=== PATIENT | female | born 1945 | race Caucasian/White ===

== ENCOUNTER 2018-11-28 09:49 | Inpatient (IN) | payer OTHER ==
[~2018-11-28] VITALS: Ht 170.2 cm; Wt 90.3 kg
[2018-11-28 10:14] LABS: BASOPHILS % (AUTO) 0.3 % (0.0-5.0); EOSINOPHILS % (AUTO) 0.5 % (0.0-8.0); HEMATOCRIT 28.9 % (36-48); LYMPHOCYTES % (AUTO) 9.2 % (21.0-51.0); MEAN CORPUSCULAR HEMOGLOBIN 35.4 pg (27.0-33.0); MEAN CORPUSCULAR HGB CONC 33.4 g/dL (32.0-36.0); NUCLEATED RED BLOOD CELLS 0.1 % (0.0-0.19); PLATELET COUNT (AUTO) 224 K/uL (130-400); RED BLOOD CELL COUNT(AUTO) 2.73 MIL/uL (4.00-5.50); RED CELL DISTRIBUTION WIDTH 17.1 % (11.0-15.5); WHITE BLOOD COUNT (AUTO) 13.7 K/uL (4.8-10.8)
[2018-11-28 10:26] LABS: ALBUMIN 2.9 g/dL (3.5-5.0); BILIRUBIN,TOTAL 0.6 mg/dL (0.2-1.0); CREATININE 2.4 mg/dL (0.5-1.5); TOTAL PROTEIN, SERUM 7.3 g/dL (6.0-8.3)
[2018-11-28 10:28] LABS: POTASSIUM 2.5 mmol/L (3.5-5.1)
[2018-11-28] MEDS ORDERED: SODIUM CHLORIDE 0.9% 1000ML 1,000 ML IV ONE (11:15)
[2018-11-28] MEDS ORDERED: POTASSIUM CHLORIDE 10% ELIXIR 20 MEQ/15 ML UDCUP ONE (11:15)
[2018-11-28] MEDS ORDERED: MAGNESIUM 2GM PREMIX 50ML 50 ML IV ONE (12:18)
[2018-11-28] MEDS ORDERED: SODIUM CHLORIDE 0.9% 500ML 500 ML IV ONE (12:58)
[2018-11-28] MEDS ORDERED: FLUCONAZOLE 100 MG TAB ONE (12:58)
[2018-11-28] MEDS ORDERED: LACTATED RINGERS 1000ML 1,000 ML IV ONE (14:29)
[2018-11-28 15:30] VITALS: BP 106/57
[2018-11-28] MEDS ORDERED: HYDROMORPHONE 1 MG/1 ML AMP IVP PRN (19:30)
[2018-11-28] MEDS ORDERED: HYDROCODONE/ACETAMINOPHEN 5/325 MG TAB PO PRN (19:30)
[2018-11-28] MEDS ORDERED: LACTATED RINGERS 1000ML 1,000 ML IV SCH (19:30)
--- NOTE | 2018-11-28 19:44 | NUR ---
PT MEDS UPDATES FAMILY PENDING TO BRING HOME MEDS.
[2018-11-28] MEDS ORDERED: HYDRALAZINE HCL 20 MG/ML VIAL IV PRN (19:45)
[2018-11-28] MEDS ORDERED: POTASSIUM CHLORIDE 10% ELIXIR 20 MEQ/15 ML UDCUP PO PRN (19:45)
[2018-11-28] MEDS ORDERED: ACETAMINOPHEN 325 MG TAB PO PRN (19:45)
[2018-11-28] MEDS ORDERED: ONDANSETRON HCL 4 MG/2 ML VIAL IVP PRN (19:45)
--- NOTE | 2018-11-28 19:45 | NUR ---
PM Assessment Received pt with family relative at the bedside, routine assessment done, plan of care discuss. Home medications obtain & filed. Pt requesting to take her dose of meds scheduled for this time, instructed to wait till MD reconciles it. Explained to the pt that I will be covering her K+2.0 initially with 20meq IVPB then I will page her MD to clarify number of dosage of Potassium as she has elevated BUN/Crea. Pt also made aware due to redness to ahmet area, will be applying skin protectant Zinc oxide cream every after voiding & requested to inform us if she will have a BM as she was medicated with Lactulose earlier, verbalizes understanding.Waffle Mattress to be place as pt reported bedbound.
[2018-11-28 20:00] VITALS: BP 99/50
[2018-11-28] MEDS: LIDOCAINE HCL-MPF 1% 2ML VIAL IJ PRN (20:45)
[2018-11-28] MEDS: POTASSIUM CHLORIDE 20MEQ/100ML 100 ML IV PRN (20:46)
[2018-11-28] MEDS ORDERED: LOVA40TA2 PO (21:06)
[2018-11-28] MEDS ORDERED: LEVO50TA11 PO (21:06)
[2018-11-28] MEDS ORDERED: PRIM50TA29 PO (21:06)
[2018-11-28] MEDS ORDERED: CHLO50TA PO (21:06)
[2018-11-28] MEDS ORDERED: CARV6.25 PO (21:06)
[2018-11-28] MEDS ORDERED: PHARMACY COMMUNICATION MISC SCH (22:00)
[2018-11-28] MEDS: POTASSIUM CHLORIDE 20 MEQ ERTAB PO PRN (22:13)
--- NOTE | 2018-11-28 23:10 | NUR ---
Re: IV Access Current IV access leaking, discontinued aseptically & new site initiated to the left hand aseptically using gauge 22 with good blood return.
[2018-11-29] VITALS (7 sets, daily range): BP systolic 82–116; BP diastolic 37–57
[2018-11-29] MEDS: POTASSIUM CHLORIDE 20 MEQ ERTAB PO PRN ×5 (00:44→17:21)
[2018-11-29 04:34] LABS: HEMATOCRIT 23.8 % (36-48); MEAN CORPUSCULAR HEMOGLOBIN 35.8 pg (27.0-33.0); MEAN CORPUSCULAR VOLUME 105.3 fL (79-99); NUCLEATED RED BLOOD CELLS 0.1 % (0.0-0.19); PLATELET COUNT (AUTO) 184 K/uL (130-400); RED BLOOD CELL COUNT(AUTO) 2.26 MIL/uL (4.00-5.50); RED CELL DISTRIBUTION WIDTH 16.7 % (11.0-15.5); WHITE BLOOD COUNT (AUTO) 11.7 K/uL (4.8-10.8)
[2018-11-29 04:54] LABS: CREATININE 1.9 mg/dL (0.5-1.5); MAGNESIUM 0.9 mg/dL (1.80-2.40)
[2018-11-29 04:56] LABS: POTASSIUM 2.5 mmol/L (3.5-5.1)
[2018-11-29] MEDS: LIDOCAINE HCL-MPF 1% 2ML VIAL IJ PRN (05:19)
[2018-11-29] MEDS: POTASSIUM CHLORIDE 20MEQ/100ML 100 ML IV PRN (05:19)
[2018-11-29] MEDS: MAGNESIUM 2GM PREMIX 50ML 50 ML IV PRN ×3 (09:13→17:22)
[2018-11-29] MEDS: ENOXAPARIN SODIUM 30 MG/0.3 ML SQ SCH (09:14)
--- NOTE | 2018-11-29 14:10 | NUR ---
INITIAL Met with pt and niece Priscila this afternoon to discuss dcp. Prior to admission pt was living w her spouse (who has a bad knee) and is unable to assist her physically. Pt states that prior to admission she was able to transfer independently to her wc or use her walker for very short distances but states that in the recent weeks she has become very weak and has been unable to transfer herself from commode to and has had to call EMS to assist her. Pt states that she has been taking sponge baths as she was unable to transfer into shower. Pt owns a wc, walker, lift chair, riser for commode. Per pt she is agreeable to be referred to a SNF @ [place] but wants her niece to tour them before making a decision. CM to follow up w pt/niece tomorrow. Addendum: 11/30/18 at 1415 by PETE STUART Amended: Links added.
[2018-11-29] MEDS ORDERED: MAGNESIUM 4GM PREMIX 100ML 100 ML IV ONE (14:15)
[2018-11-29] MEDS ORDERED: SODIUM CHLORIDE 0.9% 1000ML 1,000 ML IV SCH (14:15)
[2018-11-29] MEDS: POTASSIUM CHLORIDE 40 MEQ in SODIUM CHLORIDE 0.9% 1000ML 980 ML IV SCH (15:15)
--- NOTE | 2018-11-29 16:52 | NUR ---
Nutrition Assessment: Pt triggered for nutrition screen due to poor po intake. Pt is on a heart healthy diet. pt with poor po intake as per nurse. Labs reviewed. BMI 25 (overweight). Pt reports morbid obesity over a year ago. Pt states she weighed around 300 lbs. Pt with decubitus ulcer to sacral coccyx area. BMI 25 (overweight). Pt states she has lost about 37 lbs over past 3 months. Pt states she can only eat small spoonfuls due to dry heaves that cause clear phlegm production. Pt states she does not take Tums or any antacids. Pt dislikes fresh milk. Pt was offered nutrition supplements. Pt agreed to try Promod 60 ml QD and Ensure Enlive [address] to monitor po intake. Consult RD as needed. Addendum: 11/29/18 at [address] Amended: Links added.
[2018-11-29] MEDS ORDERED: CLOTRIMAZOLE/BETAMETHASONE DIP 45 GM CREAM.GM. TP PRN (19:15)
[2018-11-29] MEDS ORDERED: NYSTATIN-TRIAMCINOLONE CREAM 15 GM TP SCH (21:00)
[2018-11-29] MEDS: ATORVASTATIN CALCIUM 10 MG TABLET PO SCH (21:08)
[2018-11-29] MEDS: PRIMIDONE 50 MG TAB PO SCH (21:08)
--- NOTE | 2018-11-29 21:50 | NUR ---
Re: Potassium 2.0 Benchmark social contact worker MOLECULAR PHYSICIST Vicki page & called back, verified re: K+ coverage as BUN/Crea 34/2.4,order received & carried out.
[2018-11-30 00:13] VITALS: BP 109/50
[2018-11-30 04:00] VITALS: BP 114/50
[2018-11-30] MEDS: POTASSIUM CHLORIDE 40 MEQ in SODIUM CHLORIDE 0.9% 1000ML 980 ML IV SCH ×2 (04:10→20:22)
[2018-11-30 06:13] LABS: BASOPHILS % (AUTO) 0.2 % (0.0-5.0); EOSINOPHILS % (AUTO) 1.3 % (0.0-8.0); HEMATOCRIT 24.1 % (36-48); LYMPHOCYTES % (AUTO) 9.3 % (21.0-51.0); MEAN CORPUSCULAR HEMOGLOBIN 35.8 pg (27.0-33.0); MEAN CORPUSCULAR HGB CONC 33.4 g/dL (32.0-36.0); MEAN CORPUSCULAR VOLUME 107.2 fL (79-99); MONOCYTES % (AUTO) 5.7 % (3.0-13.0); NEUTROPHILS % (AUTO) 83.5 % (40.0-77.0); NUCLEATED RED BLOOD CELLS 0.1 % (0.0-0.19); PLATELET COUNT (AUTO) 217 K/uL (130-400); RED BLOOD CELL COUNT(AUTO) 2.25 MIL/uL (4.00-5.50); WHITE BLOOD COUNT (AUTO) 12.7 K/uL (4.8-10.8)
[2018-11-30 06:34] LABS: CREATININE 1.6 mg/dL (0.5-1.5); POTASSIUM 3.4 mmol/L (3.5-5.1)
[2018-11-30 08:00] VITALS: BP 113/68
[2018-11-30] MEDS: LEVOTHYROXINE 50 MCG TABLET PO SCH (09:58)
[2018-11-30] MEDS: ENOXAPARIN SODIUM 30 MG/0.3 ML SQ SCH (09:59)
[2018-11-30] MEDS ORDERED: POTASSIUM CHLORIDE 20 MEQ ERTAB PO PRN (11:45)
[2018-11-30] MEDS ORDERED: POTASSIUM CHLORIDE 20MEQ/100ML 100 ML IV PRN (11:45)
[2018-11-30] MEDS ORDERED: MAGNESIUM 2GM PREMIX 50ML 50 ML IV SCH (11:45)
[2018-11-30] MEDS ORDERED: LIDOCAINE HCL-MPF 1% 2ML VIAL IVP PRN (11:45)
[2018-11-30] MEDS ORDERED: POTASSIUM CHLORIDE 10% ELIXIR 20 MEQ/15 ML UDCUP PO PRN (11:45)
[2018-11-30 12:00] VITALS: BP 121/59
--- NOTE | 2018-11-30 14:59 | NUR ---
CM NOTE CM f/u with pt regarding SNF of choice. States niece is still touring facility and asked CM to return tomorrow afternoon. CM to f/u
[2018-11-30 16:00] VITALS: BP 114/57
[2018-11-30 19:00] VITALS: BP 122/44
[2018-11-30] MEDS: METOCLOPRAMIDE 5 MG TABLET PO SCH (19:00)
[2018-11-30] MEDS: POTASSIUM CHLORIDE 20 MEQ ERTAB PO PRN (19:01)
[2018-11-30] MEDS: ATORVASTATIN CALCIUM 10 MG TABLET PO SCH (20:22)
[2018-11-30] MEDS: PRIMIDONE 50 MG TAB PO SCH (20:23)
[2018-12-01] VITALS: BP 116/60
[2018-12-01 04:00] VITALS: BP 103/48
[2018-12-01] MEDS: METOCLOPRAMIDE 5 MG TABLET PO SCH ×3 (05:58→16:44)
[2018-12-01] MEDS: LEVOTHYROXINE 50 MCG TABLET PO SCH (05:58)
[2018-12-01 06:14] LABS: CREATININE 1.6 mg/dL (0.5-1.5); MAGNESIUM 2.3 mg/dL (1.80-2.40); POTASSIUM 4.2 mmol/L (3.5-5.1)
[2018-12-01 08:00] VITALS: BP 112/44
[2018-12-01] MEDS: ENOXAPARIN SODIUM 30 MG/0.3 ML SQ SCH (09:25)
[2018-12-01] MEDS: POTASSIUM CHLORIDE 40 MEQ in SODIUM CHLORIDE 0.9% 1000ML 980 ML IV SCH ×2 (09:25→21:14)
--- NOTE | 2018-12-01 11:21 | NUR ---
[facility] CONSULT PATIENT ASSESSED ORDERED: PATIENT PRESENTS WITH MULTIPLE PRESSURE ULCERS TO RT/LT BUTTOCKS AND TO COCCYX; [facility] RECOMMENDATIONS SUBMITTED. Addendum: 12/01/18 at 1123 by IVETT COLE LVN LVN W Amended: Links added.
[2018-12-01 12:00] VITALS: BP 116/76
--- NOTE | 2018-12-01 15:29 | NUR ---
CM Note: [employer] pending ins auth and acceptance CM met with pt and michael this morning, agreeable for placement, KRISTIAN signed for [facility]. Faxed order, clinicals, and pasrr. Spoke to [facility], received clinicals, sent to insurance already. Pt pending ins auth. Primary nurse aware. CM to cont to follow up.
[2018-12-01 16:00] VITALS: BP 135/52
[2018-12-01 19:15] VITALS: BP 124/55
[2018-12-01] MEDS: PRIMIDONE 50 MG TAB PO SCH (21:15)
[2018-12-01] MEDS: HONEY 1 APPL/ML TUBE TP SCH (21:15)
[2018-12-01] MEDS: ATORVASTATIN CALCIUM 10 MG TABLET PO SCH (21:15)
[2018-12-02] VITALS (7 sets, daily range): BP systolic 106–153; BP diastolic 54–90
--- NOTE | 2018-12-02 02:10 | NUR ---
LOOSE STOOLS Pt had 3 loose stools,instructed staff to collect sample.Pt has excoriation to her buttocks and deep tissue injury to her coccyx.Area cleansed with ns,medihoney applied,covered with Allevyn patch.Pt c/o mild pain to her buttocks.Incontinent care and repositioned per staff q 2 hrs.Pt on waffle mattress.
--- NOTE | 2018-12-02 04:42 | NUR ---
STOOL Stool specimen sent to lab.
[2018-12-02] MEDS: LEVOTHYROXINE 50 MCG TABLET PO SCH (06:08)
[2018-12-02] MEDS: METOCLOPRAMIDE 5 MG TABLET PO SCH ×2 (06:08→11:30)
--- NOTE | 2018-12-02 09:41 | NUR ---
CM Note: [facility] pending ins auth Spoke to [facility] pt currently still pending ins auth. Primary nurse aware. CM to cont to follow up.
[2018-12-02] MEDS: ENOXAPARIN SODIUM 30 MG/0.3 ML SQ SCH (09:48)
--- NOTE | 2018-12-02 17:20 | NUR ---
[facility] STAFF , CALLED AND STATED THAT PT . WAS ACCEPTED . TO THEIR FACILITY.
--- NOTE | 2018-12-02 17:32 | NUR ---
Nutrition f/u: Pt continues with poor to fair po intake. Pt states she dislikes nutrition supplement requests it is removed. Pt states po intake not optimal because of tolerance and acceptance. RD offered pt bench repair technician options such as salads and soups, pt will try salad for dinner and if tolerated will request salad at meal times. Recommendations: Continue current diet therapy. Offer variety of meals to increase po intake. Consult [facility]ILA as nutrition concerns arise. Addendum: 12/02/18 at [address] Amended: Links added.
[2018-12-02] MEDS: HONEY 1 APPL/ML TUBE TP SCH (17:52)
[2018-12-02] MEDS ORDERED: ZINC OXIDE OINT 60GM TUBE TP PRN (19:30)
--- NOTE | 2018-12-02 19:30 | NUR ---
PREPARING DISCHARGE FOR TRANSFER . ZEN WAS AT THE BEDSIDE, AND UPDATE ALSO FINISH FOR PAPER . DISCHARGE CARE, , ZEN STATED THAT SHE DID NOT WANT HER TO TRANSFER TO [facility] DURING THE NITE, COZ SHE HAD POOR. CARE , TO AREAS OF PRISON AT [facility], AND THAT SHE WAS CONCERN IT . DR. LAM WAS CALLED ,AND UPDATE OF PT .CONCERNS . AND ORDERS TO TRANSFER IN AM.
[2018-12-02] MEDS: ATORVASTATIN CALCIUM 10 MG TABLET PO SCH (21:14)
[2018-12-02] MEDS: PRIMIDONE 50 MG TAB PO SCH (21:14)
--- NOTE | 2018-12-02 21:14 | NUR ---
MEDS Due meds given,johnathan well.Pts saline locked now.Piv flushed with 10 ml 0.9% ns.Iv site with no signs of infiltration.
--- NOTE | 2018-12-02 23:59 | NUR ---
CALM Pt quietly resting in bed,no distress noted.
--- NOTE | 2018-12-03 00:12 | NUR ---
REST Pt appears to be resting,states she's fine.
--- NOTE | 2018-12-03 02:56 | NUR ---
[facility] Attempt to give report to [facility] staff,they're going to call me back.
[2018-12-03 04:42] VITALS: BP 124/57
--- NOTE | 2018-12-03 04:49 | NUR ---
REPORT Report given to Sade Ferreira LVn.
--- NOTE | 2018-12-03 04:54 | NUR ---
EMs request for ambulance faxed to ems.
[2018-12-03] MEDS: LEVOTHYROXINE 50 MCG TABLET PO SCH (06:25)
--- NOTE | 2018-12-03 06:43 | NUR ---
PATIENT Pt wants to wait for her niece to come around 0800 before being discharged.Ems paperworks faxed received per Lani. Report was given to [facility] staff as previously charted. Wounds to sacral,left and right buttocks cleansed with Ns,applied medihoney,zinc oxide,covered with allevyn patch.Wound appears macerated,red,sacral ulcer with yellow slough,left and right buttocks wounds draining serousanguionous drainage.Pt c/o moderate pain.Picture already taken and filed on chart.
[2018-12-03 07:30] VITALS: BP 120/78
[2018-12-03] MEDS: ENOXAPARIN SODIUM 30 MG/0.3 ML SQ SCH (09:00)
[2018-12-03] MEDS: HONEY 1 APPL/ML TUBE TP SCH (09:00)
--- NOTE | 2018-12-03 09:45 | NUR ---
DISCHARGE PATIENT/NIECE GIVEN DISCHARGE INSTRUCTIONS VIA TEACH BACK. IV DISCONTINUED WITH TIP INTACT. ALLYSON MOTT REPORTED TO FARAZ HERNANDEZ LVN AT [facility]. WOUND CARE AND PICTURES TAKEN. TELE REMOVED AND RETURNED TO TELEMETRY. PATIENT STABLE AT THIS TIME. PENDING EMS TO TRANSPORT PATIENT THIS TIME.
--- NOTE | 2018-12-03 09:58 | NUR ---
CALLED EMS TO TRANSPORT PATIENT TO [facility]. SPOKE TO HALLE DISPATCHER.
--- NOTE | 2018-12-03 10:46 | NUR ---
EMS ( YUKI LARKIN, SE[facility]) PRESENT TO TRANSPORT PATIENT VIA STRETCHER TO [facility].
== END 2018-12-03 10:51 | DRG 640 ==
LOC: EDH 09:49 → EDHIP 11:48 → OBSVTOIN 11:48 → 3AH 15:13
PROVIDERS: ADMIT Internal Medicine Critical Care Medicine; ATTEND Internal Medicine Critical Care Medicine
DX: E87.6 Hypokalemia (principal); N17.0 Acute kidney failure with tubular necrosis; E86.0 Dehydration; L89.159 Pressure ulcer of sacral region, unspecified stage; E03.9 Hypothyroidism, unspecified; I10 Essential (primary) hypertension; E78.5 Hyperlipidemia, unspecified; E83.42 Hypomagnesemia; Z74.01 Bed confinement status
CPT/HCPCS: 36415; 71045; 80048; 80053; 82550; 83605; 83735; 84132; 84484; 85025; 85027; 87040; 87324; 93005; 97039; G0378; J1650; J3475; J3480; J3490; J7030; J7040; J7120

== ENCOUNTER → 2022-11-08 | Outpatient (CLI) | payer OTHER ==
[~2022-11-08] MED LIST: ASCO500T92 PO; ATOR10TA69 PO; CALC-322 PO; CRAN500T4 PO; DICL100G31 TP; ESCI20TA38 PO; FENT1PAT60 TD; FOLI1TAB15 PO; LEVO50TA11 PO; MAGN400T51 PO; POTA-202 PO; POTA-79 PO; PRIM50TA23 PO; SPIR25TA6 PO; TAMS-1 PO
== END | disposition home or self-care (01) ==
LOC: RAH 14:13
PROVIDERS: ATTEND Family Medicine
DX: N15.1 Renal and perinephric abscess (principal); K80.20 Calculus of gallbladder without cholecystitis without obstruction; N20.0 Calculus of kidney; M47.815 Spondylosis without myelopathy or radiculopathy, thoracolumbar region; I25.10 Atherosclerotic heart disease of native coronary artery without angina pectoris; I70.0 Atherosclerosis of aorta
CPT/HCPCS: 74176

== ENCOUNTER 2024-03-30 15:53 | Emergency (ER) | payer OTHER ==
[~2024-03-30] VITALS: Ht 170.2 cm; Wt 84.8 kg
[~2024-03-30 15:53] MED LIST changes: +ASCO500C18 PO; -ASCO500T92 PO; +CALC-1038 PO; -CALC-322 PO; -CRAN500T4 PO; -DICL100G31 TP; -ESCI20TA38 PO; -FENT1PAT60 TD; +FOLI1 PO; -FOLI1TAB15 PO; +LEVO50CA4 PO; -LEVO50TA11 PO; -MAGN400T51 PO; +MAGN400T56 PO; +MIDO10TA PO; +PANT40TA54 PO; -POTA-79 PO; -PRIM50TA23 PO; +SPIR25TA PO; -SPIR25TA6 PO
[2024-03-30 16:23] LABS: BASOPHILS # (AUTO) 0.04 K/uL (0.00-0.20); BASOPHILS % (AUTO) 0.5 % (0.0-5.0); EOSINOPHILS # (AUTO) 0.05 K/uL (0.00-0.70); EOSINOPHILS % (AUTO) 0.6 % (0.0-8.0); HEMATOCRIT 35.7 % (36-48); IMMATURE GRANULOCYTE ABSOLUTE 0.06 K/uL (0-1); LYMPHOCYTES % (AUTO) 23.7 % (21.0-51.0); MEAN CORPUSCULAR HEMOGLOBIN 28.8 pg (27.0-33.0); MEAN CORPUSCULAR HGB CONC 31.9 g/dL (32.0-36.0); MEAN CORPUSCULAR VOLUME 90.2 fL (79-99); MONOCYTES # (AUTO) 0.6 K/uL (0.1-1.0); MONOCYTES % (AUTO) 7.5 % (3.0-13.0); NEUTROPHILS # (AUTO) 5.5 K/uL (1.8-7.7); PLATELET COUNT (AUTO) 259 K/uL (130-400); RED BLOOD CELL COUNT(AUTO) 3.96 MIL/uL (4.00-5.50); WHITE BLOOD COUNT (AUTO) 8.2 K/uL (4.8-10.8)
[2024-03-30 16:38] LABS: ALBUMIN 2.1 g/dL (3.5-5.0); BILIRUBIN,TOTAL 0.5 mg/dL (0.2-1.0); CREATININE 1.5 mg/dL (0.5-1.0); TOTAL PROTEIN, SERUM 8.2 g/dL (6.0-8.3)
[2024-03-30 19:57] LABS: APPEARANCE,URINE TURBID (CLEAR); BILIRUBIN,URINE NEGATIVE (NEGATIVE); COLOR,URINE LIGHT-ORANGE (YELLOW); GLUCOSE, URINE (UA) NEGATIVE (NEGATIVE); KETONES,URINE 10 mg/dL (NEGATIVE); LEUKOCYTE ESTERASE ,URINE 500 Leu/uL (NEGATIVE); NITRATE,URINE NEGATIVE (NEGATIVE); OCCULT BLOOD,URINE MODERATE (NEGATIVE); PH,URINE 5.5 (5.0-8.0); PROTEIN,URINE 50 mg/dL (NEGATIVE); UROBILINOGEN,URINE 0.2 mg/dL (0.2-1.0)
[2024-03-30 19:58] LABS: ADD UA MICROSCOPIC YES
[2024-03-30 20:01] LABS: BACTERIA,URINE RARE /HPF (None Seen); MUCUS,URINE RARE LPF (None Seen); WBC CLUMP MANY /HPF (0-1); WBC,URINE TNTC /HPF (0-1)
[2024-03-30] MEDS: 0.9%NACL 1000ML 1,000 ML IV ONE (20:05)
[2024-03-30] MEDS: CEFTRIAXONE 1G VIAL IVPB ONE (20:45)
[2024-03-30] MEDS ORDERED: CEFD300C3 PO (21:50)
[2024-03-31 02:56] VITALS: BP 108/53; PULSE 82; RESP 14; O2SAT 96
== END 2024-03-31 02:58 | disposition home or self-care (01) ==
LOC: EDH 15:53
DX: N12 Tubulo-interstitial nephritis, not specified as acute or chronic (principal); D64.9 Anemia, unspecified; E87.1 Hypo-osmolality and hyponatremia; I10 Essential (primary) hypertension; J45.909 Unspecified asthma, uncomplicated; Z79.890 Hormone replacement therapy; Z79.899 Other long term (current) drug therapy; Z88.0 Allergy status to penicillin; Z88.5 Allergy status to narcotic agent; Z88.6 Allergy status to analgesic agent; Z88.8 Allergy status to other drugs, medicaments and biological substances; Z90.49 Acquired absence of other specified parts of digestive tract; Z90.89 Acquired absence of other organs; Z98.890 Other specified postprocedural states
CPT/HCPCS: 99285; 74176; 96365; 96366; 96361; 80053; 85025; 87086 ×2; 87186; 81001; 36415; J7030; J0696

== ENCOUNTER 2024-04-08 09:53 | Day surgery (SDC) | payer OTHER ==
[2024-04-06 13:58] LABS: BASOPHILS # (AUTO) 0.07 K/uL (0.00-0.20); BASOPHILS % (AUTO) 0.7 % (0.0-5.0); EOSINOPHILS # (AUTO) 0.06 K/uL (0.00-0.70); EOSINOPHILS % (AUTO) 0.6 % (0.0-8.0); HEMATOCRIT 40.6 % (36-48); IMMATURE GRANULOCYTE ABSOLUTE 0.08 K/uL (0-1); LYMPHOCYTES # (AUTO) 2.7 K/uL (1.0-4.8); LYMPHOCYTES % (AUTO) 25.5 % (21.0-51.0); MEAN CORPUSCULAR HEMOGLOBIN 28.3 pg (27.0-33.0); MEAN CORPUSCULAR HGB CONC 29.8 g/dL (32.0-36.0); MEAN CORPUSCULAR VOLUME 95.1 fL (79-99); MONOCYTES # (AUTO) 0.5 K/uL (0.1-1.0); MONOCYTES % (AUTO) 4.5 % (3.0-13.0); NEUTROPHILS # (AUTO) 7.1 K/uL (1.8-7.7); NEUTROPHILS % (AUTO) 67.9 % (40.0-77.0); PLATELET COUNT (AUTO) 291 K/uL (130-400); RED BLOOD CELL COUNT(AUTO) 4.27 MIL/uL (4.00-5.50); RED CELL DISTRIBUTION WIDTH 14.9 % (11.0-15.5); WHITE BLOOD COUNT (AUTO) 10.5 K/uL (4.8-10.8)
[2024-04-06 14:09] LABS: CREATININE 1.5 mg/dL (0.5-1.0); POTASSIUM 5.1 mmol/L (3.5-5.1)
[2024-04-06 14:29] LABS: INR 1.07 (0.85-1.15); PROTHROMBIN TIME 11.5 SEC (9.6-11.6)
[2024-04-06 14:30] LABS: PARTIAL THROMBOPLASTIN TIME 28.5 SEC (26.3-35.5)
[~2024-04-08] VITALS: Ht 170.2 cm; Wt 73.8 kg
[2024-04-08] VITALS (8 sets, daily range): BP systolic 96–126; BP diastolic 40–56; PULSE 80–102; RESP 14–16
[~2024-04-08 09:53] MED LIST changes: +CEFD300C3 PO
[2024-04-08] MEDS ORDERED: IOHEXOL-350 50ML VIAL IV ONE (12:48)
[2024-04-08] MEDS ORDERED: LIDOCAINE HCL 400MG/20ML VIAL ONE (12:48)
[2024-04-08] MEDS ORDERED: FENTANYL CITRATE PF 50 MCG/1 ML 2ML VIAL ONE (12:49)
[2024-04-08] MEDS ORDERED: DiphenhydrAMINE HCL 50 MG/ML VIAL ONE (12:51)
== END 2024-04-08 16:05 | disposition home or self-care (01) ==
LOC: DAH 09:53
PROVIDERS: ATTEND Family Medicine
DX: Z43.6 Encounter for attention to other artificial openings of urinary tract (principal); N13.30 Unspecified hydronephrosis; N20.1 Calculus of ureter; R63.0 Anorexia; N28.89 Other specified disorders of kidney and ureter; I10 Essential (primary) hypertension; Z90.710 Acquired absence of both cervix and uterus; Z98.1 Arthrodesis status; N12 Tubulo-interstitial nephritis, not specified as acute or chronic; Z88.0 Allergy status to penicillin; Z88.1 Allergy status to other antibiotic agents; Z88.5 Allergy status to narcotic agent; Z88.8 Allergy status to other drugs, medicaments and biological substances; Z79.899 Other long term (current) drug therapy; Z98.890 Other specified postprocedural states
CPT/HCPCS: 80048; 85025; 85610; 85730; 36415; 50432; 87071; 87086 ×3; 87186 ×3; 87205; 87116; 87101; 87206 ×2; C1729; C1894; C1769; J1200; J3010; J3490; J1644; Q9967; A4215; A4222; A4221; A4663; A4216; A4606; A4223 ×3; 99156; 99157

== ENCOUNTER 2024-04-27 14:16 | Emergency (ER) | payer OTHER ==
[~2024-04-27] VITALS: Ht 167.6 cm; Wt 90.7 kg
[2024-04-27 15:32] LABS: BASOPHILS # (AUTO) 0.05 K/uL (0.00-0.20); BASOPHILS % (AUTO) 0.7 % (0.0-5.0); EOSINOPHILS # (AUTO) 0.18 K/uL (0.00-0.70); EOSINOPHILS % (AUTO) 2.6 % (0.0-8.0); HEMATOCRIT 38.3 % (36-48); IMMATURE GRANULOCYTE ABSOLUTE 0.02 K/uL (0-1); LYMPHOCYTES # (AUTO) 2.5 K/uL (1.0-4.8); LYMPHOCYTES % (AUTO) 36.8 % (21.0-51.0); MEAN CORPUSCULAR HEMOGLOBIN 28.6 pg (27.0-33.0); MEAN CORPUSCULAR HGB CONC 30.3 g/dL (32.0-36.0); MEAN CORPUSCULAR VOLUME 94.3 fL (79-99); MONOCYTES # (AUTO) 0.5 K/uL (0.1-1.0); MONOCYTES % (AUTO) 7.2 % (3.0-13.0); NEUTROPHILS # (AUTO) 3.6 K/uL (1.8-7.7); NEUTROPHILS % (AUTO) 52.4 % (40.0-77.0); PLATELET COUNT (AUTO) 166 K/uL (130-400); RED BLOOD CELL COUNT(AUTO) 4.06 MIL/uL (4.00-5.50); RED CELL DISTRIBUTION WIDTH 17.5 % (11.0-15.5); WHITE BLOOD COUNT (AUTO) 6.9 K/uL (4.8-10.8)
[2024-04-27 15:52] LABS: CREATININE 1.2 mg/dL (0.5-1.0); POTASSIUM 4.2 mmol/L (3.5-5.1)
[2024-04-27 19:49] LABS: ADD UA MICROSCOPIC YES; APPEARANCE,URINE CLEAR (CLEAR); BILIRUBIN,URINE NEGATIVE (NEGATIVE); COLOR,URINE YELLOW (YELLOW); GLUCOSE, URINE (UA) NEGATIVE (NEGATIVE); KETONES,URINE 40 mg/dL (NEGATIVE); LEUKOCYTE ESTERASE ,URINE 75 Leu/uL (NEGATIVE); NITRATE,URINE NEGATIVE (NEGATIVE); OCCULT BLOOD,URINE NEGATIVE (NEGATIVE); PROTEIN,URINE NEGATIVE (NEGATIVE); UROBILINOGEN,URINE 0.2 mg/dL (0.2-1.0)
[2024-04-27 19:59] LABS: BACTERIA,URINE MANY /HPF (None Seen); SQUAMOUS EPITHELIAL CELL,UR RARE /HPF (0-2)
[2024-04-27] MEDS: cefTRIAXone 1G VIAL IVPB ONE (20:41)
[2024-04-27] MEDS ORDERED: LEVO750T39 PO (20:51)
[2024-04-28 00:41] VITALS: BP 116/55; PULSE 65; RESP 16; TEMP 98.1; O2SAT 97
== END 2024-04-28 00:42 | disposition home or self-care (01) ==
LOC: EDH 14:16 → EDHIP 18:36 → UNDOADMIN 18:36 → EDH 04-28 00:42
DX: N12 Tubulo-interstitial nephritis, not specified as acute or chronic (principal); F02.818 Dementia in other diseases classified elsewhere, unspecified severity, with other behavioral disturbance; D63.1 Anemia in chronic kidney disease; I12.9 Hypertensive chronic kidney disease with stage 1 through stage 4 chronic kidney disease, or unspecified chronic kidney disease; N18.30 Chronic kidney disease, stage 3 unspecified; E78.00 Pure hypercholesterolemia, unspecified; G89.29 Other chronic pain; M54.9 Dorsalgia, unspecified; Z79.899 Other long term (current) drug therapy; Z88.0 Allergy status to penicillin; Z88.5 Allergy status to narcotic agent; Z88.6 Allergy status to analgesic agent; Z88.8 Allergy status to other drugs, medicaments and biological substances; Z90.49 Acquired absence of other specified parts of digestive tract; Z90.710 Acquired absence of both cervix and uterus; Z90.89 Acquired absence of other organs; Z98.890 Other specified postprocedural states
CPT/HCPCS: 99285; 96374; 76770; 84484; 80048; 82140; 85025; 87086 ×2; 87186; 81001; 36415; 93005; J0696

== ENCOUNTER 2024-06-04 17:56 | Emergency (ER) | payer OTHER ==
[~2024-06-04] VITALS: Ht 172.7 cm; Wt 72.6 kg
[~2024-06-04 17:56] MED LIST changes: +LEVO750T39 PO
[2024-06-04 19:33] LABS: BASOPHILS # (AUTO) 0.04 K/uL (0.00-0.20); BASOPHILS % (AUTO) 0.6 % (0.0-5.0); EOSINOPHILS # (AUTO) 0.12 K/uL (0.00-0.70); EOSINOPHILS % (AUTO) 1.7 % (0.0-8.0); HEMATOCRIT 38.6 % (36-48); IMMATURE GRANULOCYTE ABSOLUTE 0.02 K/uL (0-1); LYMPHOCYTES # (AUTO) 2.1 K/uL (1.0-4.8); LYMPHOCYTES % (AUTO) 29.7 % (21.0-51.0); MEAN CORPUSCULAR HEMOGLOBIN 30.1 pg (27.0-33.0); MEAN CORPUSCULAR HGB CONC 31.6 g/dL (32.0-36.0); MEAN CORPUSCULAR VOLUME 95.3 fL (79-99); MONOCYTES # (AUTO) 0.3 K/uL (0.1-1.0); MONOCYTES % (AUTO) 4.7 % (3.0-13.0); NEUTROPHILS # (AUTO) 4.4 K/uL (1.8-7.7); PLATELET COUNT (AUTO) 157 K/uL (130-400); RED BLOOD CELL COUNT(AUTO) 4.05 MIL/uL (4.00-5.50); RED CELL DISTRIBUTION WIDTH 16.7 % (11.0-15.5)
[2024-06-04 19:39] LABS: CREATININE 1.1 mg/dL (0.5-1.0); POTASSIUM 3.4 mmol/L (3.5-5.1)
[2024-06-04] MEDS ORDERED: IOHEXOL 350 MG/ML 100ML INFUS..BTL IV ONE (21:37)
[2024-06-04 23:45] VITALS: BP 121/67; PULSE 85; RESP 17; TEMP 98.3; O2SAT 96
== END 2024-06-05 01:38 | disposition home or self-care (01) ==
LOC: EDH 17:56
DX: T83.022A Displacement of nephrostomy catheter, initial encounter (principal); K80.20 Calculus of gallbladder without cholecystitis without obstruction; K59.00 Constipation, unspecified; I10 Essential (primary) hypertension; J44.9 Chronic obstructive pulmonary disease, unspecified; K21.9 Gastro-esophageal reflux disease without esophagitis; F41.9 Anxiety disorder, unspecified; G30.9 Alzheimer's disease, unspecified; F02.80 Dementia in other diseases classified elsewhere, unspecified severity, without behavioral disturbance, psychotic disturbance, mood disturbance, and anxiety; Z88.0 Allergy status to penicillin; Z88.5 Allergy status to narcotic agent; Z88.6 Allergy status to analgesic agent; Z88.8 Allergy status to other drugs, medicaments and biological substances; Z88.1 Allergy status to other antibiotic agents; Z79.899 Other long term (current) drug therapy; Z79.2 Long term (current) use of antibiotics; Y84.8 Other medical procedures as the cause of abnormal reaction of the patient, or of later complication, without mention of misadventure at the time of the procedure; Y82.8 Other medical devices associated with adverse incidents
CPT/HCPCS: 99285; 74177; 80048; 85025; 83605; 36415; 74018; 84145; Q9967

== ENCOUNTER 2024-09-05 05:33 | Emergency (ER) | payer OTHER ==
[~2024-09-05] VITALS: Ht 170.2 cm; Wt 63.5 kg
[~2024-09-05 05:33] MED LIST changes: -CEFD300C3 PO; +ESCI20TA38 PO; +FENT-76 TP; -LEVO750T39 PO; -MIDO10TA PO; +MIDO10TA3 PO; +MORP15TA70 PO; +PRIM50TA23 PO; -SPIR25TA PO; -TAMS-1 PO
--- NOTE | 2024-09-05 05:48 | NUR ---
[facility] [phone]
[2024-09-05 06:30] LABS: BASOPHILS # (AUTO) 0.06 K/uL (0.00-0.20); BASOPHILS % (AUTO) 0.7 % (0.0-5.0); EOSINOPHILS # (AUTO) 0.36 K/uL (0.00-0.70); EOSINOPHILS % (AUTO) 4.1 % (0.0-8.0); HEMATOCRIT 31.6 % (36-48); IMMATURE GRANULOCYTE ABSOLUTE 0.03 K/uL (0-1); LYMPHOCYTES # (AUTO) 1.9 K/uL (1.0-4.8); LYMPHOCYTES % (AUTO) 21.9 % (21.0-51.0); MEAN CORPUSCULAR HEMOGLOBIN 31.8 pg (27.0-33.0); MEAN CORPUSCULAR VOLUME 102.6 fL (79-99); MONOCYTES # (AUTO) 0.4 K/uL (0.1-1.0); MONOCYTES % (AUTO) 4.5 % (3.0-13.0); NEUTROPHILS % (AUTO) 68.5 % (40.0-77.0); PLATELET COUNT (AUTO) 143 K/uL (130-400); RED BLOOD CELL COUNT(AUTO) 3.08 MIL/uL (4.00-5.50); RED CELL DISTRIBUTION WIDTH 15.5 % (11.0-15.5); WHITE BLOOD COUNT (AUTO) 8.7 K/uL (4.8-10.8)
[2024-09-05 06:40] LABS: CREATININE 0.7 mg/dL (0.5-1.0); POTASSIUM 4.1 mmol/L (3.5-5.1)
[2024-09-05] MEDS: ALBUTEROL 0.083% 2.5 MG/3 ML INH IH ONE (06:57)
[2024-09-05] MEDS: IpraTROPium/alBUTERol SULFATE 3 ML SOLUTION IH ONE ×2 (06:58→10:18)
--- NOTE | 2024-09-05 06:58 | ERN ---
General Chief Complaint: Shortness of Breath Stated Complaint: SOB, PRODUCTIVE COUGH, RUNNY NOSE SINCE SATURDAY Time Seen by MD: 05:37 History of Present Illness Initial Comments Mrs Lopez is an 79-year-old female significant past medical history of depression, GERD, debility and failure to thrive comes in today with a chief complaint of cough. Patient was having issues bringing up phlegm. Patient was brought in by her private half-way. Patient denies any fevers or chills. Patient denies any ongoing shortness of breath Allergies: Coded Allergies: Penicillins (Unverified Allergy, Severe, REDNESS, 11/28/18) bacitracin (Unverified Allergy, Severe, RASH, 11/28/18) codeine (Unverified Allergy, Severe, RASH, 11/28/18) diazepam (Unverified Allergy, Severe, RASH, 11/28/18) lisinopril (Unverified Allergy, Severe, 11/28/18) coughing naproxen (Unverified Allergy, Severe, 11/28/18) neomycin (Unverified Allergy, Severe, RASH, 11/28/18) piroxicam (Unverified Allergy, Severe, HIVES, 11/28/18) polymyxin B (Unverified Allergy, Severe, RASH, 11/28/18) Home Meds Reported Medications Primidone (Mysoline) 50 Mg Tablet, 0.5 TAB PO BID for 30 Days, #120 TAB 0 Refills 08/05/24 Morphine Sulfate (Morphine Sulfate) 15 Mg Tablet, 15 MG PO Q4HPRN PRN for PAIN, TAB 08/05/24 Fentanyl (Fentanyl) 37.5 Mcg/Hour Patch.td72, 1 PATCH TP Q3D for pain for 30 Days, #10 PATCH 0 Refills 08/05/24 Escitalopram Oxalate (Escitalopram Oxalate) 20 Mg Tablet, 1 TAB PO DAILY for 30 Days, #30 TAB 0 Refills 08/05/24 Midodrine HCl (Midodrine HCl) 10 Mg Tablet, 10 MG PO TID PRN for HYPOTENSION, TAB 11/26/22 Pantoprazole Sodium (Pantoprazole Sodium) 40 Mg Tablet.dr, 40 MG PO DAILY PRN for GERD, TAB 11/26/22 Ascorbic Acid (Vitamin C) 500 Mg Capsule, 500 MG PO DAILY, CAP 11/26/22 Magnesium Oxide (Magnesium Oxide) 400 Mg Tablet, 400 MG PO Q3D, TAB 11/26/22 Potassium Chloride (Potassium Chloride) 20 Meq Tab.er.prt, 20 MEQ PO BID 11/26/22 Calcium Carbonate (Calcium) 500 Mg Tablet, 1000 MG PO HS, TAB 11/26/22 Folic Acid (Folvite) 1 Mg Tab, 1 MG PO DAILY, TAB 11/26/22 Atorvastatin Calcium (Atorvastatin Calcium) 10 Mg Tablet, 10 MG PO HS, TAB 11/26/22 Levothyroxine Sodium (Levothyroxine) 50 Mcg Capsule, 50 MCG PO DAILY, CAP 11/26/22 Past Medical History Past Medical History: Anxiety, COPD, Dementia, GERD, Hypertension Medical History Other: NEPHROSTOMY, SPINAL INJURY Past Surgical History: Other Surgical History Other: LEFT SIDED NEPHROSTOMY. Social History Social History: Negative, Lives with family Female( History) History: Not Applicable ROS Dictation Constitutional: Negative for fever,chills, and weight loss Eyes: Negative for injury, pain,redness, and discharge ENT: Negative for injury,pain or swelling Cardiovascular: Negative for chest pain, palpitations, and edema Respiratory: Positive for cough Abdomen/GI: Negative for abdominal pain, nausea, vomiting, diarrhea, and constipation Back: Negative for injury and pain : Negative for injury, bleeding and discharge MS/Extremity: Negative for injury and deformity Skin: Negative for rash, and discoloration Neuro: Negative for headache, weakness, numbness, tingling, and seizure Psych: Negative for suicide ideation, homicidal ideation, and hallucinations Physical Exam Physical Exam Dictation General: Frail elderly female Head/Face: Normocephalic, atraumatic Eyes: PERRL, EOMI, vision at baseline ENT: oral cavity clear, Neck: Trachea midline, supple Cardiovascular: RRR, normal S1/S2 Respiratory: Diminished breath sounds Abdomen: Soft nontender patient has drains place Skin: Warm, dry, normal turgor, no rash MS/Extremity: Pulses equal Neuro: Patient moving extremities spontaneously alert and oriented x3 Results Laboratory and Microbiology Lab and Micro Result Laboratory Tests Test 09/05/24 06:00 09/05/24 06:19 Influenza Type A Antigen Negative For Type A Influenza Type B Antigen Negative For Type B SARS-CoV-2 Antigen (Rapid) PRESUMPTIVE NEGATIVE White Blood Count 8.7 K/uL (4.8-10.8) Red Blood Count 3.08 MIL/uL (4.00-5.50) L Hemoglobin 9.8 g/dL (12.0-16.0) L Hematocrit 31.6 % (36-48) L Mean Corpuscular Volume 102.6 fL (79-99) H Mean Corpuscular Hemoglobin 31.8 pg (27.0-33.0) Mean Corpuscular Hemoglobin Concent 31.0 g/dL (32.0-36.0) L Red Cell Distribution Width 15.5 % (11.0-15.5) Platelet Count 143 K/uL (130-400) Mean Platelet Volume 10.6 fL (7.5-10.5) H Immature Granulocyte % (Auto) 0.3 % (0-1) Neutrophils (%) (Auto) 68.5 % (40.0-77.0) Lymphocytes (%) (Auto) 21.9 % (21.0-51.0) Monocytes (%) (Auto) 4.5 % (3.0-13.0) Eosinophils (%) (Auto) 4.1 % (0.0-8.0) Basophils (%) (Auto) 0.7 % (0.0-5.0) Neutrophils # (Auto) 6.0 K/uL (1.8-7.7) Lymphocytes # (Auto) 1.9 K/uL (1.0-4.8) Monocytes # (Auto) 0.4 K/uL (0.1-1.0) Eosinophils # (Auto) 0.36 K/uL (0.00-0.70) Basophils # (Auto) 0.06 K/uL (0.00-0.20) Absolute Immature Granulocyte (auto 0.03 K/uL (0-1) Nucleated Red Blood Cells 0.0 % (0.0-0.19) Red Blood Cell Morphology See comments Sodium Level 142 mmol/L (136-145) Potassium Level 4.1 mmol/L (3.5-5.1) Chloride Level 109 mmol/L (101-111) Carbon Dioxide Level 27 mmol/L (21-32) Blood Urea Nitrogen 16 mg/dL (7-18) Creatinine 0.7 mg/dL (0.5-1.0) Glomerular Filtration Rate Calc 87 mL/min (>90) Random Glucose 83 mg/dL (70-105) Total Calcium 8.0 mg/dL (8.5-10.1) L EKG/XRAY/US/CT/MRI X-RAY Comment Institution : [facility] Accession No. : [id number] Patient : JESSICA Quiles Creator : Dictator : Catering Operations Manager : Online Marketing Manager : LIZETTE PENALOZA Approver2 : Study : CHEST 1VW Study Date : 09/05/2024 06:37:00 Report Date : [address] [address] [place] [address] IMAGING REPORT Signed PATIENT: AYANNA LOPEZ MR#: [id number] : 1945 SEX: F AGE: 79 LOCATION: [facility] ORDER 2 STATUS: [facility] REPORT#: [id number] SERVICE 8 REASON: Dyspnea/SOB ORDERING PHYSICIAN: CHRISTOPHER VALDIVIA MD PROCEDURE: CXR1VW - CHEST 1VW PORTABLE CHEST RADIOGRAPH INDICATION: Dyspnea/SOB COMPARISON: None FINDINGS: environmental monitoring technician leads overlie the field of view. Heart size is normal. The pulmonary vascularity and reena appear normal. Subtle left chest opacification without focal consolidation. No pneumothorax detected. IMPRESSION: Findings suggesting small to medium-sized layering left pleural effusion. DICTATED BY: LIZETTE PENALOZA MD DATE: 09/05/24806 ELECTRONICALLY SIGNED BY: LIZETTE PENALOZA MD DATE: 09/05/24809 CT Scan Comment Institution : [facility] Accession No. : [id number] Patient : JESSICA Quiles Creator : Dictator : Catering Operations Manager : Online Marketing Manager : LIZETTE PENALOZA Approver2 : Study : CT ABDOMEN/PELVIS W/O CONTRAST Study Date : 09/05/2024 09:32:55 Report Date : [facility] [address] [place] [address] IMAGING REPORT Signed PATIENT: AYANNA LOPEZ MR#: [id number] : 1945 SEX: F AGE: 79 LOCATION: [facility] ORDER 4 STATUS: [facility] REPORT#: [id number] SERVICE 1 REASON: h/o l perinephric abscess ORDERING PHYSICIAN: JACKSON HOLLIS MD PROCEDURE: ABD PEL WO - CT ABDOMEN/PELVIS W/O CONTRAST CT ABDOMEN WITHOUT CONTRAST. CT PELVIS WITHOUT CONTRAST. INDICATION: Left perinephric abscess history TECHNIQUE: Routine transaxial imaging using 5 mm slice thickness through the abdomen and pelvis without the administration of IV contrast. Thin slice reconstructions are also provided. Coronal and sagittal reformatted images acquired for interpretation. CT was performed with one or more of the following dose reduction techniques: Automated exposure control, adjustment of the mA and/or kV according to patient size, or use of iterative reconstruction technique. COMPARISON: 08/05/2024 FINDINGS: ON NONCONTRAST IMAGING: ABDOMEN: Please refer to the corresponding CT chest imaging for details regarding moderate left pleural effusion and bibasilar atelectasis. No abnormal renal calcifications, hydronephrosis, perinephric inflammation, or proximal hydroureter detected. Left perirenal pigtail drainage catheter in place. Small organized fluid collection along the anterior margin of the left psoas muscle measures 8.5 cm long by 1.8 cm wide. No associated air densities. The liver is normal in size and smooth in contour without biliary duct dilation. The spleen is normal in size and attenuation. A couple of subcentimeter calcific gallstones. The pancreas appears normal without pancreatic duct dilation. The adrenal glands appear normal. No significant abdominal, retrocrural or retroperitoneal adenopathy noted. No evidence for intra-abdominal free air or organized fluid collection. Mild calcific plaque is noted along the abdominal aortic and iliac vessel jain without aneurysmal dilation. PELVIS: No abnormal calcifications within the urinary bladder or distal ureters. No evidence for free air or organized pelvic fluid collection. No significant pelvic adenopathy detected. Large amount of fecal material within the distal colon and impacted within the rectal vault. Terminal ileum appears unremarkable. Uterus is absent. The appendix is not well-visualized. Streak artifact from L4-L5 fusion hardware. Mild thoracal lumbar spondylosis includes mild lumbar dextroscoliosis IMPRESSION: 1. Left perirenal pigtail drainage catheter in place. 2. 8.5 cm long by 1.8 cm wide organized fluid collection along the left psoas muscle suggesting evolving abscess. 3. Cholelithiasis. 4. Large amount of fecal material within the distal colon and impacted within the rectal vault. DICTATED BY: LIZETTE PENALOZA MD DATE: 09/05/24946 ELECTRONICALLY SIGNED BY: LIZETTE PENALOZA MD DATE: 09/05/2453 Institution : [facility] Accession No. : [id number] Patient : JESSICA Quiles Creator : Dictator : Catering Operations Manager : Online Marketing Manager : LIZETTE PENALOZA Approver2 : Study : CT CHEST W/O CONTRAST Study Date : 09/05/2024 09:28:51 Report Date : [address] [address] IMAGING REPORT Signed PATIENT: AYANNA LOPEZ MR#: [id number] : 1945 SEX: F AGE: 79 LOCATION: [facility] ORDER 4 STATUS: [facility] REPORT#: [id number] SERVICE 1 REASON: h/o l perinephric abscess ORDERING PHYSICIAN: JACKSON HOLLIS MD PROCEDURE: CHEST WO - CT CHEST W/O CONTRAST CT CHEST WITHOUT CONTRAST INDICATION: Perinephric abscess TECHNIQUE: Routine axial images using 5 mm slice thickness were acquired from the lung apices to the bases without the administration of IV contrast.Coronal and sagittal reformatted images acquired for interpretation. CT was performed with one or more of the following dose reduction techniques: Automated exposure control, adjustment of the mA and/or kV according to patient size, or use of iterative reconstruction technique. COMPARISON: 12/23/2018 FINDINGS: The heart size is normal. Coronary arterial wall calcific plaque noted. No pericardial effusion noted. Mild calcific plaque is present along the aortic arch and thoracic aortic jain without aneurysmal dilation. The trachea and airways are patent. No evidence for consolidation. No evidence for pulmonary nodule/mass. Moderate left pleural effusion with subjacent passive densities. Posteromedial right lower lobe densities. No axillary, hilar, or mediastinal lymphadenopathy. No evidence for pneumothorax. Visible osseous structures are intact. IMPRESSION: Moderate left pleural effusion with subjacent passive atelectasis and mild posteromedial right lower lobe atelectasis. Arteriosclerotic disease as described. DICTATED BY: LIZETTE PENALOZA MD DATE: 09/05/24945 ELECTRONICALLY SIGNED BY: LIZETTE PENALOZA MD DATE: 09/05/24949 [facility] Progress note by Dr. Jackson Hollis. I assumed care of this patient at 7:00 a.m. I have reviewed the nursing notes, vital signs and available diagnostic studies. I have reviewed the charting completed by my colleague. 79-year-old female with a complex recent history with a left perinephric abscess treated with a drainage tube and a nephrostomy tube with some spotty urologic follow up. Course complicated by pneumonia and a group home rehab hospitalization. More recently she is at a half-way. She has been losing weight due to dietary restrictions associated with some swallowing concerns. She has had a recent diagnosis of pneumonia. She presents now with 36 hours of cough and can not move her phlegm. They were out of albuterol for the nebulizer. There has been no fever. She is hungry and requesting a strawberry shake. The primary history is provided by the patient's niece as the patient is somewhat confused. The patient refused to sit forward so that I could examine her lungs. She also complained of right eye pain and blurry vision but refused eye examination. Based upon the findings of a possible pleural effusion on the left and concerns the family has a about the nephrostomy tube drainage I did obtain some CT scans. She does have a pleural effusion but no obvious lobar pneumonia. She continues to have a small fluid collection in the left psoas area. White count is normal kidney function is normal and flu and COVID are negative. Cough was somewhat improved after some DuoNeb treatments and antibiotics. The patient is adamant about not wanting any additional procedures or exam. She does have a DNR in place. Plan is to discharge her home on a short course of antibiotics and a refill of albuterol for the nebulizer. I have reviewed all of the results with her niece and we have discussed discharge management. She is ready to go home ED Course Orders Procedure Category Date Status Time Cbc With Differential LAB 09/05/24 Complete 05:39 Chest 1vw RAD 09/05/24 Resulted 05:39 Albuterol 0.083% PHA 09/05/24 Complete 2.5mg/3ml (Proventil 06:00 Ipratropium/Albuterol PHA 09/05/24 Complete Neb (Duoneb) 06:00 Basic Metabolic Panel LAB 09/05/24 Complete 05:39 Covid19 (Sars Antigen LAB 09/05/24 Complete Rapid) 05:54 Influenza Type A & B, LAB 09/05/24 Complete Rapid 05:54 Ipratropium/Albuterol PHA 09/05/24 Complete Neb (Duoneb) 09:30 Levofloxacin 500 PHA 09/05/24 In Process Mg/D5w 100 Ml 09:30 Erythrocin 0.5% Ophth PHA 09/05/24 Complete Oint (Erythrocin 0 09:30 Ct Abdomen/Pelvis W/O CT 09/05/24 Resulted Contrast 09:12 Ct Chest W/O Contrast CT 09/05/24 Resulted 09:12 Current Medications Medications (Trade) Dose Ordered Sig/Kriss Route PRN Reason Start Time Stop Time Status Last Admin Dose Admin Albuterol (DUOneb) 1 udvial ONCE ONCE IH 09/05/24 06:00 09/05/24 06:01 DC 09/05/24 06:58 Albuterol (DUOneb) 1 udvial ONCE ONCE IH 09/05/24 09:30 09/05/24 09:31 DC 09/05/24 10:18 Albuterol Sulfate (Proventil 0.083% 2.5mg/3ml) 2.5 mg ONCE ONCE IH 09/05/24 06:00 09/05/24 06:01 DC 09/05/24 06:57 Erythromycin (Erythrocin 0.5% Ophth Oint) 1 appl ONCE ONCE OU 09/05/24 09:30 09/05/24 09:31 DC 09/05/24 10:13 Levofloxacin/ Dextrose 100 ml @ 100 mls/hr Q24H IV 09/05/24 09:30 09/15/24 09:29 09/05/24 10:13 Vital Signs Date Time Temp Pulse Resp B/P (MAP) Pulse Ox O2 Delivery O2 Flow Rate FiO2 09/05/24 10:19 77 18 09/05/24 08:03 98.2 99 18 102/59 94 Room Air* 0 21 09/05/24 07:02 76 18 09/05/24 06:45 76 18 109/53 96 Room Air* 0 21 09/05/24 05:38 99.0 82 18 123/67 93 Room Air 0 09/05/24 05:34 99.0 82 18 123/67 93 Room Air* 0 21 DX & DISP Disposition: Discharge Decision to Admit Date: Sep 05, 2024 Decision to Admit Time: 11:41 Departure Impression: Primary Impression: Bronchitis Additional Impressions: Dementia associated with other underlying disease with behavioral disturbance, Pleural effusion, left, Conjunctivitis Condition: Stable Scripts Erythromycin Base (Erythromycin) 5 Mg/Gram (0.5 %) Oint...g. 1 APPL OP TID for 5 Days, #1 TUBE 0 Refills apply 1 cm ribbon into the lower conjunctival sac Prov: JACKSON HOLLIS MD 09/05/24 Albuterol Sulfate (Albuterol Sulfate) 1.25 Mg/3 Ml Vial.neb 1.25 MG IH QIDP PRN for COUGH, #30 INH 0 Refills Prov: JACKSON HOLLIS MD 09/05/24 Levofloxacin (Levofloxacin) 250 Mg Tablet 1 TAB PO DAILY for 7 Days, #7 TAB 0 Refills Prov: JACKSON HOLLIS MD 09/05/24 Additional Instructions: Use the antibiotic one tablet daily starting tomorrow until it is gone. Use the albuterol through the nebulizer three to 4 times a day as needed for cough. Apply the erythromycin 3 times a day to each eye. Continue usual home medications and diet. Follow up with the PCP and with Dr. Mcbride Referrals: LAST FITZPATRICK MD (PCP) Time of Disposition: 11:46 CHRISTOPHER VALDIVIA MD Sep 05, 2024 06:58 JACKSON HOLLIS MD Sep 05, 2024 11:46
[2024-09-05 07:00] LABS: COVID19 (SARS ANTIGEN RAPID) PRESUMPTIVE NEGATIVE (NEGATIVE); INFLUENZA TYPE A Negative For Type A (NEGATIVE); INFLUENZA TYPE B Negative For Type B (NEGATIVE)
[2024-09-05 07:02] VITALS: PULSE 76; RESP 18
--- NOTE | 2024-09-05 08:10 | HMCIMG ---
PORTABLE CHEST RADIOGRAPH INDICATION: Dyspnea/SOB COMPARISON: None FINDINGS: property assessment monitor leads overlie the field of view. Heart size is normal. The pulmonary vascularity and reena appear normal. Subtle left chest opacification without focal consolidation. No pneumothorax detected. IMPRESSION: Findings suggesting small to medium-sized layering left pleural effusion.
--- NOTE | 2024-09-05 09:50 | HMCIMG ---
CT CHEST WITHOUT CONTRAST INDICATION: Perinephric abscess TECHNIQUE: Routine axial images using 5 mm slice thickness were acquired from the lung apices to the bases without the administration of IV contrast.Coronal and sagittal reformatted images acquired for interpretation. CT was performed with one or more of the following dose reduction techniques: Automated exposure control, adjustment of the mA and/or kV according to patient size, or use of iterative reconstruction technique. COMPARISON: 12/23/2018 FINDINGS: The heart size is normal. Coronary arterial wall calcific plaque noted. No pericardial effusion noted. Mild calcific plaque is present along the aortic arch and thoracic aortic jain without aneurysmal dilation. The trachea and airways are patent. No evidence for consolidation. No evidence for pulmonary nodule/mass. Moderate left pleural effusion with subjacent passive densities. Posteromedial right lower lobe densities. No axillary, hilar, or mediastinal lymphadenopathy. No evidence for pneumothorax. Visible osseous structures are intact. IMPRESSION: Moderate left pleural effusion with subjacent passive atelectasis and mild posteromedial right lower lobe atelectasis. Arteriosclerotic disease as described.
--- NOTE | 2024-09-05 09:53 | HMCIMG ---
CT ABDOMEN WITHOUT CONTRAST. CT PELVIS WITHOUT CONTRAST. INDICATION: Left perinephric abscess history TECHNIQUE: Routine transaxial imaging using 5 mm slice thickness through the abdomen and pelvis without the administration of IV contrast. Thin slice reconstructions are also provided. Coronal and sagittal reformatted images acquired for interpretation. CT was performed with one or more of the following dose reduction techniques: Automated exposure control, adjustment of the mA and/or kV according to patient size, or use of iterative reconstruction technique. COMPARISON: 08/05/2024 FINDINGS: ON NONCONTRAST IMAGING: ABDOMEN: Please refer to the corresponding CT chest imaging for details regarding moderate left pleural effusion and bibasilar atelectasis. No abnormal renal calcifications, hydronephrosis, perinephric inflammation, or proximal hydroureter detected. Left perirenal pigtail drainage catheter in place. Small organized fluid collection along the anterior margin of the left psoas muscle measures 8.5 cm long by 1.8 cm wide. No associated air densities. The liver is normal in size and smooth in contour without biliary duct dilation. The spleen is normal in size and attenuation. A couple of subcentimeter calcific gallstones. The pancreas appears normal without pancreatic duct dilation. The adrenal glands appear normal. No significant abdominal, retrocrural or retroperitoneal adenopathy noted. No evidence for intra-abdominal free air or organized fluid collection. Mild calcific plaque is noted along the abdominal aortic and iliac vessel jain without aneurysmal dilation. PELVIS: No abnormal calcifications within the urinary bladder or distal ureters. No evidence for free air or organized pelvic fluid collection. No significant pelvic adenopathy detected. Large amount of fecal material within the distal colon and impacted within the rectal vault. Terminal ileum appears unremarkable. Uterus is absent. The appendix is not well-visualized. Streak artifact from L4-L5 fusion hardware. Mild thoracal lumbar spondylosis includes mild lumbar dextroscoliosis IMPRESSION: 1. Left perirenal pigtail drainage catheter in place. 2. 8.5 cm long by 1.8 cm wide organized fluid collection along the left psoas muscle suggesting evolving abscess. 3. Cholelithiasis. 4. Large amount of fecal material within the distal colon and impacted within the rectal vault.
[2024-09-05] MEDS: levoFLOXacin 500 MG/D5W 100 ML 100 ML IV SCH (10:13)
[2024-09-05] MEDS: ERYTHROMYCIN BASE 0.5% OPHTH OINT 1 GM TUBE OU ONE (10:13)
[2024-09-05 10:19] VITALS: PULSE 77; RESP 18
[2024-09-05] MEDS ORDERED: LEVO250T75 PO (11:45)
[2024-09-05] MEDS ORDERED: ALBU1.252 IH (11:45)
[2024-09-05] MEDS ORDERED: ERYT1OIN7 OP (11:45)
--- NOTE | 2024-09-05 12:01 | NUR ---
EMS CALLED AND PAPERWORK SENT FOR TRANSFER
[2024-09-05 12:14] VITALS: BP 104/47; PULSE 62; RESP 18; TEMP 98.3; O2SAT 97
== END 2024-09-05 13:00 ==
LOC: EDH 05:33
DX: J40 Bronchitis, not specified as acute or chronic (principal); H10.9 Unspecified conjunctivitis; J90 Pleural effusion, not elsewhere classified; F02.818 Dementia in other diseases classified elsewhere, unspecified severity, with other behavioral disturbance; I10 Essential (primary) hypertension; J44.9 Chronic obstructive pulmonary disease, unspecified; K21.9 Gastro-esophageal reflux disease without esophagitis; Z20.822 Contact with and (suspected) exposure to COVID-19; Z79.890 Hormone replacement therapy; Z79.899 Other long term (current) drug therapy; Z88.0 Allergy status to penicillin; Z88.5 Allergy status to narcotic agent; Z88.6 Allergy status to analgesic agent; Z88.8 Allergy status to other drugs, medicaments and biological substances
CPT/HCPCS: 99285; 71250; 96365; 71045; 96366; 87426; 80048; 85025; 87804 ×2; 36415; 74176; 94640 ×2; J1956